=== PATIENT | male | born 1970 | race Hispanic/Latino ===

== ENCOUNTER 2017-11-03 13:22 | Inpatient (IN) | payer OTHER ==
[~2017-11-03] VITALS: Ht 175.3 cm; Wt 78.0 kg
[2017-11-03] VITALS (18 sets, daily range): BP systolic 116–160; BP diastolic 66–109
[2017-11-03] MEDS ORDERED: CLOPIDOGREL BISULFATE 300 MG TAB ONE ×2 (13:27→13:32)
[2017-11-03] MEDS ORDERED: ASPIRIN 325 MG TABLET ONE ×2 (13:28→13:32)
[2017-11-03] MEDS ORDERED: HEPARIN SODIUM 5000UNIT/ML 1ML VIAL ONE (13:28)
[2017-11-03] MEDS ORDERED: ONDANSETRON HCL MDV 20ML 2 MG/ML VIAL ONE (13:39)
[2017-11-03] MEDS ORDERED: MORPHINE SULFATE 4 MG/1ML SYG ONE (13:39)
[2017-11-03] MEDS ORDERED: BIVALIRUDIN 250 MG/VIAL IV ONE (13:43)
[2017-11-03] MEDS ORDERED: HEPARIN SODIUM 1000UNIT/ML 10ML VIAL ONE (13:43)
[2017-11-03] MEDS ORDERED: ISOVUE-370 50ML VIAL IV ONE (13:43)
[2017-11-03] MEDS ORDERED: DOPAMINE HCL 400 MG/D5%-WATER 0 ML IV ONE (13:43)
[2017-11-03] MEDS ORDERED: IOPAMIDOL-370 100 ML VIAL IV ONE (13:43)
[2017-11-03] MEDS ORDERED: NITROGLYCERIN 5 MG/ML 10 ML VIAL IV ONE (13:43)
[2017-11-03] MEDS ORDERED: ATROPINE SULFATE 0.1 MG/ML 10 ML SYG IVP ONE (13:43)
[2017-11-03] MEDS ORDERED: NITROGLYCERIN 50 MG/D5% WATER 1 BOT ONE ×2 (13:45→15:29)
[2017-11-03 14:09] LABS: BASOPHILS % (AUTO) 0.8 % (0.0-5.0); EOSINOPHILS % (AUTO) 1.4 % (0.0-8.0); HEMATOCRIT 49.4 % (42-54); LYMPHOCYTES % (AUTO) 24.1 % (21.0-51.0); MEAN CORPUSCULAR HEMOGLOBIN 31.4 pg (27.0-33.0); MEAN CORPUSCULAR HGB CONC 34.9 g/dL (32.0-36.0); MEAN CORPUSCULAR VOLUME 89.9 fL (79-99); MONOCYTES % (AUTO) 7.7 % (3.0-13.0); PLATELET COUNT (AUTO) 270 K/uL (130-400); WHITE BLOOD COUNT (AUTO) 9.5 K/uL (4.8-10.8)
[2017-11-03] MEDS ORDERED: METOPROLOL TARTRATE 1 MG/ML 5ML VIAL IV ONE (14:14)
[2017-11-03 14:20] LABS: INR 1.01 (0.85-1.15); PARTIAL THROMBOPLASTIN TIME 27.5 SEC (26.3-35.5); PROTHROMBIN TIME 10.6 SEC (9.6-11.6)
[2017-11-03] MEDS ORDERED: EPTIFIBATIDE 75MG/100ML BOTTLE 100 ML IV ONE (14:29)
[2017-11-03 14:31] LABS: CREATININE 1.4 mg/dL (0.5-1.5); POTASSIUM 3.7 mmol/L (3.5-5.1)
[2017-11-03] MEDS ORDERED: EPTIFIBATIDE 2 MG/ML 10 ML VIAL IVP ONE (14:34)
[2017-11-03] MEDS ORDERED: LIDOCAINE HCL 2% 20ML ONE (14:43)
[2017-11-03 14:44] LABS: ALBUMIN 3.9 g/dL (3.5-5.0); BILIRUBIN,TOTAL 0.7 mg/dL (0.2-1.0); CREATINE KINASE MB 1.3 ng/mL (0.5-3.6); TOTAL PROTEIN, SERUM 8.6 g/dL (6.0-8.3)
[2017-11-03] MEDS: EPTIFIBATIDE 75MG/100ML BOTTLE 100 ML IV SCH ×2 (15:00→20:30)
[2017-11-03] MEDS ORDERED: ONDANSETRON HCL MDV 20ML 2 MG/ML VIAL IVP SCH (15:00)
[2017-11-03] MEDS ORDERED: MORPHINE SULFATE 4 MG/1ML SYG IVP SCH ×2 (15:00)
[2017-11-03] MEDS ORDERED: ACETAMINOPHEN-CODEINE 300/30MG TAB PO PRN (15:00)
[2017-11-03] MEDS ORDERED: ONDANSETRON HCL 4 MG/2 ML VIAL IVP PRN (15:00)
[2017-11-03] MEDS ORDERED: TEMAZEPAM 30 MG CAP PO PRN (15:00)
[2017-11-03] MEDS ORDERED: NITROGLYCERIN 50 MG/D5% WATER 250 BOT IV PRN (15:30)
[2017-11-03] MEDS ORDERED: METF10004 PO (15:38)
[2017-11-03] MEDS: INSULIN HUMULIN R 100 UNIT/ML 3ML SQ SCH ×2 (17:31→21:01)
[2017-11-03] MEDS: ATORVASTATIN CALCIUM 10 MG TABLET PO SCH (20:34)
[2017-11-03] MEDS: METOPROLOL TARTRATE 25 MG TAB PO SCH (20:34)
[2017-11-04] VITALS (29 sets, daily range): BP systolic 104–129; BP diastolic 45–92
[2017-11-04 05:15] LABS: HEMATOCRIT 41.5 % (42-54); MEAN CORPUSCULAR HEMOGLOBIN 31.7 pg (27.0-33.0); MEAN CORPUSCULAR HGB CONC 35.2 g/dL (32.0-36.0); MEAN CORPUSCULAR VOLUME 90.3 fL (79-99); PLATELET COUNT (AUTO) 255 K/uL (130-400); WHITE BLOOD COUNT (AUTO) 10.6 K/uL (4.8-10.8)
[2017-11-04 05:27] LABS: CREATININE 0.8 mg/dL (0.5-1.5); POTASSIUM 3.8 mmol/L (3.5-5.1)
[2017-11-04] MEDS ORDERED: ATROPINE SULFATE 0.1 MG/ML 10 ML SYG IVP ONE (05:32)
[2017-11-04] MEDS ORDERED: ONDANSETRON HCL MDV 20ML 2 MG/ML VIAL ONE (05:38)
[2017-11-04] MEDS ORDERED: MORPHINE SULFATE 2 MG/ML 1ML SYG ONE (05:39)
[2017-11-04] MEDS: INSULIN HUMULIN R 100 UNIT/ML 3ML SQ SCH ×4 (07:02→20:30)
[2017-11-04] MEDS: METOPROLOL TARTRATE 25 MG TAB PO SCH ×2 (08:05→20:30)
[2017-11-04] MEDS: PANTOPRAZOLE SODIUM 40 MG TABLET.DR PO SCH (08:06)
[2017-11-04] MEDS: ASPIRIN 81MG TAB.CHEW PO SCH (08:06)
[2017-11-04] MEDS: LOSARTAN 50 MG TABLET PO SCH (08:46)
[2017-11-04] MEDS ORDERED: CLOPIDOGREL BISULFATE 75 MG TAB PO SCH ×2 (09:00)
[2017-11-04] MEDS: ATORVASTATIN CALCIUM 10 MG TABLET PO SCH (20:25)
[2017-11-05] VITALS (12 sets, daily range): BP systolic 94–133; BP diastolic 50–82
[2017-11-05 03:47] LABS: EOSINOPHILS % (AUTO) 2.1 % (0.0-8.0); HEMATOCRIT 42.2 % (42-54); LYMPHOCYTES % (AUTO) 34.3 % (21.0-51.0); MEAN CORPUSCULAR HEMOGLOBIN 31.1 pg (27.0-33.0); MEAN CORPUSCULAR HGB CONC 34.4 g/dL (32.0-36.0); MEAN CORPUSCULAR VOLUME 90.6 fL (79-99); NEUTROPHILS % (AUTO) 52.6 % (40.0-77.0); PLATELET COUNT (AUTO) 229 K/uL (130-400); RED BLOOD CELL COUNT(AUTO) 4.66 MIL/uL (4.50-6.20); RED CELL DISTRIBUTION WIDTH 12.9 % (11.0-15.5); WHITE BLOOD COUNT (AUTO) 9.2 K/uL (4.8-10.8)
[2017-11-05 03:59] LABS: POTASSIUM 3.7 mmol/L (3.5-5.1)
[2017-11-05] MEDS ORDERED: CEFUROXIME SODIUM 1.5 GM VIAL IVP ONE (06:00)
[2017-11-05] MEDS: INSULIN HUMULIN R 100 UNIT/ML 3ML SQ SCH ×4 (06:19→21:30)
[2017-11-05] MEDS ORDERED: ENOXAPARIN SODIUM 40 MG/0.4 ML SYRINGE SQ SCH (09:00)
[2017-11-05] MEDS ORDERED: GUAIFENESIN-DM 200/20 MG 10 ML PO PRN (10:00)
[2017-11-05] MEDS: LOSARTAN 50 MG TABLET PO SCH (10:13)
[2017-11-05] MEDS: PANTOPRAZOLE SODIUM 40 MG TABLET.DR PO SCH (10:14)
[2017-11-05] MEDS: METOPROLOL TARTRATE 25 MG TAB PO SCH ×2 (10:14→21:53)
[2017-11-05] MEDS: ASPIRIN 81MG TAB.CHEW PO SCH (10:14)
[2017-11-05 17:32] LABS: HEMOGLOBIN A1C 9.7 % (4.0-6.0)
[2017-11-05 17:35] LABS: CHOLESTEROL 152 mg/dL (<200); HDL CHOLESTEROL 44 mg/dL (29-71); LDL DIRECT 100 mg/dL (0-99); TRIGLYCERIDES 127 mg/dL (30-200)
[2017-11-05] MEDS: ATORVASTATIN CALCIUM 10 MG TABLET PO SCH (20:54)
[2017-11-05] MEDS ORDERED: DIPHENHYDRAMINE HCL 25 MG CAPSULE PO ONE (21:00)
[2017-11-06 04:08] VITALS: BP 132/72
[2017-11-06] MEDS ORDERED: CEFUROXIME 1.5GM+NS 100ML 100 ML IV SCH (06:00)
[2017-11-06] MEDS ORDERED: ASPI-1005 PO (06:39)
[2017-11-06] MEDS ORDERED: NITR0.4T SL (06:39)
[2017-11-06] MEDS ORDERED: ATOR10 PO (06:39)
[2017-11-06] MEDS ORDERED: CLOP75TA32 PO (06:39)
[2017-11-06] MEDS ORDERED: LOSA50TA2 PO (06:39)
[2017-11-06 07:00] VITALS: BP 128/83
[2017-11-06] MEDS: INSULIN HUMULIN R 100 UNIT/ML 3ML SQ SCH ×4 (07:11→21:00)
[2017-11-06] MEDS: PANTOPRAZOLE SODIUM 40 MG TABLET.DR PO SCH (09:10)
[2017-11-06] MEDS: LOSARTAN 50 MG TABLET PO SCH (09:10)
[2017-11-06] MEDS: ASPIRIN 81MG TAB.CHEW PO SCH (09:10)
[2017-11-06] MEDS: METOPROLOL TARTRATE 25 MG TAB PO SCH ×2 (09:10→21:11)
[2017-11-06 11:00] VITALS: BP 116/71
[2017-11-06] MEDS ORDERED: ONDANSETRON HCL MDV 20ML 2 MG/ML VIAL IVP PRN (12:37)
[2017-11-06 16:00] VITALS: BP 122/73
[2017-11-06] MEDS ORDERED: ALPRAZOLAM 0.25 MG TABLET PO PRN (18:00)
[2017-11-06 19:25] VITALS: BP 124/63
[2017-11-06] MEDS: ATORVASTATIN CALCIUM 40 MG TABLET PO SCH (21:11)
[2017-11-06 23:05] VITALS: BP 118/69
[2017-11-06] MEDS: ACETAMINOPHEN 325 MG TAB PO PRN (23:28)
[2017-11-07] VITALS (7 sets, daily range): BP systolic 95–145; BP diastolic 64–86
[2017-11-07 04:00] LABS: HEMATOCRIT 40.3 % (42-54); MEAN CORPUSCULAR HEMOGLOBIN 31.7 pg (27.0-33.0); MEAN CORPUSCULAR HGB CONC 34.9 g/dL (32.0-36.0); MEAN CORPUSCULAR VOLUME 90.7 fL (79-99); PLATELET COUNT (AUTO) 227 K/uL (130-400); RED BLOOD CELL COUNT(AUTO) 4.44 MIL/uL (4.50-6.20); WHITE BLOOD COUNT (AUTO) 14.7 K/uL (4.8-10.8)
[2017-11-07 04:09] LABS: CREATININE 1.3 mg/dL (0.5-1.5); MAGNESIUM 1.6 mg/dL (1.80-2.40); POTASSIUM 4.2 mmol/L (3.5-5.1)
[2017-11-07 04:11] LABS: INR 1.02 (0.85-1.15); PARTIAL THROMBOPLASTIN TIME 30.2 SEC (26.3-35.5); PROTHROMBIN TIME 10.5 SEC (9.6-11.6)
[2017-11-07] MEDS: INSULIN HUMULIN R 100 UNIT/ML 3ML SQ SCH ×4 (06:29→21:30)
[2017-11-07 06:35] LABS: HEMATOCRIT 40.2 % (42-54); MEAN CORPUSCULAR HEMOGLOBIN 31.2 pg (27.0-33.0); MEAN CORPUSCULAR HGB CONC 34.5 g/dL (32.0-36.0); MEAN CORPUSCULAR VOLUME 90.5 fL (79-99); PLATELET COUNT (AUTO) 209 K/uL (130-400); RED BLOOD CELL COUNT(AUTO) 4.44 MIL/uL (4.50-6.20); RED CELL DISTRIBUTION WIDTH 12.7 % (11.0-15.5); WHITE BLOOD COUNT (AUTO) 13.6 K/uL (4.8-10.8)
[2017-11-07] MEDS: PANTOPRAZOLE SODIUM 40 MG TABLET.DR PO SCH (10:05)
[2017-11-07] MEDS: METOPROLOL TARTRATE 25 MG TAB PO SCH ×2 (10:05→21:28)
[2017-11-07] MEDS: ASPIRIN 81MG TAB.CHEW PO SCH (10:05)
[2017-11-07] MEDS: LOSARTAN 50 MG TABLET PO SCH (10:05)
[2017-11-07] MEDS: ACETAMINOPHEN 325 MG TAB PO PRN (10:32)
[2017-11-07] MEDS: LEVOFLOXACIN 500 MG/D5W 100 ML 100 ML IV SCH (10:58)
[2017-11-07] MEDS: SODIUM CHLORIDE 0.9% 1000ML 1,000 ML IV SCH (10:58)
[2017-11-07] MEDS: ACETAMINOPHEN-CODEINE 300/30MG TAB PO PRN ×2 (12:35→23:34)
[2017-11-07] MEDS ORDERED: METOPROLOL TARTRATE 25 MG TAB PO SCH (13:00)
[2017-11-07] MEDS ORDERED: MAGNESIUM 2GM PREMIX 50ML 50 ML IV SCH (16:00)
[2017-11-07] MEDS: METFORMIN HCL 500 MG TABLET PO SCH (16:23)
[2017-11-07 17:39] LABS: APPEARANCE,URINE Clear (CLEAR); BILIRUBIN,URINE Negative (NEGATIVE); COLOR,URINE Dark Yellow (YELLOW); GLUCOSE, URINE (UA) 250 mg/dL (NEGATIVE); KETONES,URINE Negative (NEGATIVE); LEUKOCYTE ESTERASE ,URINE Negative (NEGATIVE); NITRATE,URINE Negative (NEGATIVE); OCCULT BLOOD,URINE Negative (NEGATIVE); PROTEIN,URINE POS 1+ (NEGATIVE)
[2017-11-07 17:47] LABS: BACTERIA,URINE Rare /HPF (None Seen); RBC,URINE 0-1 /HPF (0-1); SQUAMOUS EPITHELIAL CELL,UR Rare /HPF (0-2); WBC,URINE 0-1 /HPF (0-1)
[2017-11-07] MEDS ORDERED: INSULIN GLARGINE 100 UNITS/ML 10 ML VIAL SQ SCH (21:00)
[2017-11-07] MEDS: ATORVASTATIN CALCIUM 40 MG TABLET PO SCH (21:27)
[2017-11-08 04:00] LABS: HEMATOCRIT 37.4 % (42-54); MEAN CORPUSCULAR HEMOGLOBIN 32.8 pg (27.0-33.0); MEAN CORPUSCULAR HGB CONC 36.4 g/dL (32.0-36.0); MEAN CORPUSCULAR VOLUME 90.2 fL (79-99); PLATELET COUNT (AUTO) 184 K/uL (130-400); RED BLOOD CELL COUNT(AUTO) 4.15 MIL/uL (4.50-6.20); RED CELL DISTRIBUTION WIDTH 12.8 % (11.0-15.5); WHITE BLOOD COUNT (AUTO) 8.5 K/uL (4.8-10.8)
[2017-11-08 04:10] LABS: CREATININE 1.1 mg/dL (0.5-1.5); MAGNESIUM 2.4 mg/dL (1.80-2.40)
[2017-11-08] MEDS: SODIUM CHLORIDE 0.9% 1000ML 1,000 ML IV SCH (04:15)
[2017-11-08 04:42] VITALS: BP 98/63
[2017-11-08] MEDS: INSULIN HUMULIN R 100 UNIT/ML 3ML SQ SCH (07:26)
[2017-11-08 07:46] VITALS: BP 106/64
[2017-11-08] MEDS: METFORMIN HCL 500 MG TABLET PO SCH (08:14)
[2017-11-08] MEDS ORDERED: CLOPIDOGREL BISULFATE 75 MG TAB PO SCH (09:00)
[2017-11-08] MEDS: ASPIRIN 81MG TAB.CHEW PO SCH (09:31)
[2017-11-08] MEDS: METOPROLOL TARTRATE 25 MG TAB PO SCH (09:31)
[2017-11-08] MEDS: LEVOFLOXACIN 500 MG/D5W 100 ML 100 ML IV SCH (09:31)
[2017-11-08] MEDS: LOSARTAN 50 MG TABLET PO SCH (09:31)
[2017-11-08] MEDS: PANTOPRAZOLE SODIUM 40 MG TABLET.DR PO SCH (09:31)
[2017-11-08] MEDS ORDERED: LEVO500T2 PO (09:57)
[2017-11-08] MEDS ORDERED: INSLAN SQ (09:57)
[2017-11-08 11:20] VITALS: BP 92/62
== END 2017-11-08 12:12 | disposition home or self-care (01) | DRG 247 ==
LOC: EDH 13:22 → EDHIP 13:23 → 2BH 14:50 → 2AH 11-05 06:35
PROVIDERS: ADMIT Internal Medicine Nephrology; ATTEND Internal Medicine Nephrology
PROC: 4A023N7 Measurement of Cardiac Sampling and Pressure, Left Heart, Percutaneous Approach (ICD-10-PCS; principal; 2017-11-03)
PROC: B2111ZZ Fluoroscopy of Multiple Coronary Arteries using Low Osmolar Contrast (ICD-10-PCS; 2017-11-03)
PROC: 027035Z Dilation of Coronary Artery, One Artery with Two Drug-eluting Intraluminal Devices, Percutaneous Approach (ICD-10-PCS; 2017-11-03)
DX: I21.19 ST elevation (STEMI) myocardial infarction involving other coronary artery of inferior wall (principal); E11.65 Type 2 diabetes mellitus with hyperglycemia; E78.5 Hyperlipidemia, unspecified; F17.200 Nicotine dependence, unspecified, uncomplicated; I10 Essential (primary) hypertension; K52.9 Noninfective gastroenteritis and colitis, unspecified; I25.10 Atherosclerotic heart disease of native coronary artery without angina pectoris; I25.2 Old myocardial infarction; Z82.49 Family history of ischemic heart disease and other diseases of the circulatory system; Z91.14 Patient's other noncompliance with medication regimen; Z83.3 Family history of diabetes mellitus; Z95.5 Presence of coronary angioplasty implant and graft
CPT/HCPCS: 36415; 71045; 71046; 74176; 80048; 80053; 80061; 81001; 82550; 82553; 82948; 83036; 83735; 83874; 84484; 85025; 85027; 85347; 85610; 85730; 86850; 86900; 86901; 86922; 87088; 93005; 93306; 93454; 93880; 94010; 99291; C1769; C1887; C1894; C9600; J0461; J0583; J0697; J1265; J1327; J1644; J1650; J1815; J1956; J2270; J3475; J3490; J7030; Q0163; Q9967

== ENCOUNTER 2019-05-06 12:19 | Emergency (ER) | payer OTHER ==
[~2019-05-06 12:19] MED LIST: ASPI-1005 PO; ATOR10 PO; CLOP75TA32 PO; INSLAN SQ; LEVO500T2 PO; LOSA50TA2 PO; METF-446 PO; NITR0.4T SL
== END 2019-05-06 13:17 | disposition home or self-care (01) ==
LOC: EDH 12:19
DX: M54.5 Low back pain (principal); I10 Essential (primary) hypertension; E11.9 Type 2 diabetes mellitus without complications; E78.5 Hyperlipidemia, unspecified; Z72.0 Tobacco use
CPT/HCPCS: 99281